=== PATIENT | male | born 2000 | race Caucasian/White ===

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

== ENCOUNTER 2021-10-05 16:58 | Observation (INO) | payer OTHER ==
[2021-10-05] VITALS (9 sets, daily range): BP systolic 122–143; BP diastolic 63–87
[~2021-10-05] VITALS: Ht 175.3 cm; Wt 109.0 kg
[~2021-10-05 16:58] MED LIST changes: +MOTRIN400 MG/TAB PO
[2021-10-05 17:27] LABS: HEMATOCRIT 45.2 % (39.0-50.0); HEMOGLOBIN 15.3 g/dl (14.0-18.0); IMMATURE GRANULOCYTES 0.1 % (0.0-5.0); MEAN CELL VOLUME 82.3 fL CALC (80.0-100.0); MEAN CORPUSCULAR HGB 27.9 pG CALC (26.0-32.0); MEAN CORPUSCULAR HGB CONC 33.8 g/dL CAL (32.0-36.0); NEUT# 7.05 thou/uL (1.82-7.42); RED BLOOD COUNT 5.49 mill/uL (4.70-6.10); RED CELL DISTRI WIDTH 13.3 % (11.5-15.5)
[2021-10-05 17:45] LABS: ALBUMIN 4.5 g/dL (3.2-5.0); ALKALINE PHOSPHATASE 65 u/l (38-126); ANION GAP 15 (6-22 (CALC)); BUN 11 mg/dL (8-21); BUN/CREATININE RATIO 11 (12-20 (CALC)); CARBON DIOXIDE 25 mmol/l (22-30); CHLORIDE 100 mmol/l (95-108); CREATININE 0.9 mg/dL (0.7-1.3); GFR FOR AFR.AMER. > 60 ML/MIN (>=60 (CALC)); GFR OTHER RACES > 60 ML/MIN (>=60 (CALC)); POTASSIUM 4.5 mmol/l (3.5-5.1); SGOT/AST 25 u/l (17-59); SODIUM 135 mmol/l (137-146); TOTAL PROTEIN 7.5 g/dL (6.3-8.2)
[2021-10-05 17:50] LABS: BILIRUBIN, TOTAL 0.9 mg/dL (0.0-1.4)
[2021-10-06] VITALS (10 sets, daily range): BP systolic 115–142; BP diastolic 50–66
[2021-10-07 03:04] VITALS: BP 99/53
[2021-10-07 06:14] VITALS: BP 118/59
[2021-10-07] MEDS ORDERED: PERCOCET 5/321 COMBO PO (09:30)
[2021-10-07] MEDS ORDERED: BACTRIM DS1 TAB PO (09:30)
== END 2021-10-07 10:55 | disposition home or self-care (01) ==
LOC: ED 16:58 → ED-I 19:50 → ED 20:00 → MS2 20:01
PROVIDERS: Nurse Practitioner; ADMIT Surgery; ATTEND Surgery
DX: L02.211 Cutaneous abscess of abdominal wall (principal)
CPT/HCPCS: G0378; J0131; Q9967

== ENCOUNTER 2021-10-11 14:43 | Emergency (ER) | payer OTHER ==
[~2021-10-11] VITALS: Ht 175.3 cm; Wt 110.0 kg
[2021-10-11] VITALS (10 sets, daily range): BP systolic 116–138; BP diastolic 61–69
[~2021-10-11 14:43] MED LIST changes: +PERCOCET 5/321 COMBO PO
[2021-10-11 16:16] LABS: HEMATOCRIT 45.6 % (39.0-50.0); HEMOGLOBIN 15.4 g/dl (14.0-18.0); IMMATURE GRANULOCYTES 0.2 % (0.0-5.0); MEAN CORPUSCULAR HGB 27.7 pG CALC (26.0-32.0); MEAN CORPUSCULAR HGB CONC 33.8 g/dL CAL (32.0-36.0); NEUT# 6.04 thou/uL (1.82-7.42); RED BLOOD COUNT 5.56 mill/uL (4.70-6.10); RED CELL DISTRI WIDTH 13.4 % (11.5-15.5)
[2021-10-11 16:39] LABS: ALBUMIN 4.3 g/dL (3.2-5.0); ANION GAP 17 (6-22 (CALC)); BILIRUBIN, TOTAL 0.6 mg/dL (0.0-1.4); BUN 9 mg/dL (8-21); BUN/CREATININE RATIO 9 (12-20 (CALC)); CARBON DIOXIDE 25 mmol/l (22-30); CHLORIDE 98 mmol/l (95-108); CREATININE 1.1 mg/dL (0.7-1.3); GFR FOR AFR.AMER. > 60 ML/MIN (>=60 (CALC)); GFR OTHER RACES > 60 ML/MIN (>=60 (CALC)); POTASSIUM 4.3 mmol/l (3.5-5.1); SODIUM 135 mmol/l (137-146); TOTAL PROTEIN 8.2 g/dL (6.3-8.2)
[2021-10-11 16:49] LABS: ALKALINE PHOSPHATASE 181 u/l (38-126); SGOT/AST 147 u/l (17-59)
[2021-10-11 17:08] LABS: URINE BILIRUBIN - DIPSTICK NEGATIVE (NEGATIVE); URINE BLOOD DIPSTICK NEGATIVE (NEGATIVE); URINE COLOR YELLOW; URINE GLUCOSE - DIPSTICK NEGATIVE (NEGATIVE); URINE KETONE NEGATIVE (NEGATIVE); URINE LEUK ESTERASE NEGATIVE (NEGATIVE); URINE PH 8.5 (4.5-8.0); URINE PROTEIN - DIPSTICK 30 mg/dL (NEG-TRACE); URINE SPECIFIC GRAVITY 1.015
[2021-10-11 17:14] LABS: URINE NITRITE - DIPSTICK NEGATIVE (Negative); URINE RBC 0-2 RBC/hpf (0-5); URINE WBC 0-2 WBC/hpf (0-5)
[2021-10-11] MEDS ORDERED: DECADRON4 MG PO (17:35)
== END 2021-10-11 18:03 | disposition home or self-care (01) ==
LOC: ED 14:43
PROVIDERS: Family Medicine
DX: B27.90 Infectious mononucleosis, unspecified without complication (principal)
CPT/HCPCS: J1100